=== PATIENT | female | born 1950 | race Two or more races ===

== ENCOUNTER 2024-09-27 19:21 | Emergency (ER) | payer OTHER ==
[~2024-09-27] VITALS: Ht 160 cm; Wt 55.8 kg
[2024-09-27] MEDS ORDERED: CHILDREN'S ASPI81 MG PO (20:34)
[2024-09-27] MEDS ORDERED: ATORVASTATIN CA40 MG PO (20:34)
[2024-09-27] MEDS ORDERED: METOPROLOL SUCC25 MG PO (20:34)
[2024-09-27] MEDS ORDERED: PANTOPRAZOLE SODIUM 40 MG in 0.9 % SODIUM CHLORIDE 8 ML IV PUSH STA (20:58)
[2024-09-27] MEDS ORDERED: KETOROLAC TROMETHAMINE 30 MG VIAL IV ONE (21:00)
[2024-09-27] MEDS ORDERED: PIPERACILLIN/TAZOBACTAM SODIUM 3.375 GM VIAL IV ONE (21:00)
[2024-09-27] MEDS ORDERED: 0.9 % SODIUM CHLORIDE 1,000 ML IV SCH (21:00)
[2024-09-27] MEDS ORDERED: KETOROLAC TROMETHAMINE 30 MG VIAL ONE (21:23)
[2024-09-27 21:25] LABS: HEMATOCRIT 41.7 % (36.0-45.00); HEMOGLOBIN 13.9 g/dL (12.0-15.00); MEAN CELL VOLUME 91.7 fL (80.00-100.00); MEAN CORPUSCULAR HEMOGLOBIN 30.5 pg (27.00-32.0); MEAN CORPUSCULAR HGB CONC 33.2 g/dl (32.0-36.0); PLATELET COUNT 243 K/uL (150-450); RED BLOOD COUNT 4.55 M/uL (4.00-6.00); RED CELL DISTRIBUTION WIDTH 13.5 % (11.5-14.5)
[2024-09-27 21:54] LABS: ALBUMIN 4.1 gm/dL (3.4-5.0); BILIRUBIN TOTAL 0.5 mg/dL (0.3-1.2); CALCIUM 9.2 mg/dL (8.5-10.1); CREATININE SERUM 0.8 mg/dL (0.55-1.02); GFR 70.12; GLOBULINA 3.4 G/DL (2.4-3.5); POTASSIUM 4.03 mEq/L (3.5-5.1); TOTAL PROTEIN 7.5 gm/dL (6.4-8.2)
== END 2024-09-28 00:14 | disposition home or self-care (01) ==
LOC: ER 19:23
PROVIDERS: General Practice
DX: K57.32 Diverticulitis of large intestine without perforation or abscess without bleeding (principal); I25.10 Atherosclerotic heart disease of native coronary artery without angina pectoris; I10 Essential (primary) hypertension; I25.2 Old myocardial infarction
CPT/HCPCS: 36415; 74177; 96365; 96366; 99284; J1885; J2543; J7030; Q9965

== ENCOUNTER 2025-01-31 07:08 | Outpatient (CLI) | payer OTHER ==
[~2025-01-31 07:08] MED LIST: ATORVASTATIN CA40 MG PO; CHILDREN'S ASPI81 MG PO; METOPROLOL SUCC25 MG PO
== END 2025-01-31 07:12 | disposition home or self-care (01) ==
LOC: TOM 07:08
PROVIDERS: ATTEND Surgery
DX: K57.90 Diverticulosis of intestine, part unspecified, without perforation or abscess without bleeding (principal); Z12.11 Encounter for screening for malignant neoplasm of colon